=== PATIENT | female | born 1960 | race Caucasian/White ===

== ENCOUNTER → 2017-05-21 | Day surgery (SDC) | payer OTHER ==
[~2017-05-21] VITALS: Ht 160 cm; Wt 70.5 kg
[~2017-05-21] MED LIST: BUPIVACAINE HCL PF 0.5% 30 ML VIAL ONE; CEPH-460 PO; CHLORHEXIDINE GLUCONATE 2 % 1 PACK (2 CLOTHS) TOPICAL PRN; INSULIN HUMAN REGULAR 1,000 UNITS/10 ML VIAL SQ PRN; LACTATED RINGER'S 1000 ML IV PRN; LIDOCAINE HCL 2% 50 ML VIAL ONE; METOPROLOL TARTRATE 25 MG TAB PO PRN; MIDAZOLAM HCL 2 MG/2 ML VIAL ONE; NEOMYCIN/POLYMYXIN 1 ML G.U. IRRIGANT ONE; NORC5TAB PO; POVIDONE IODINE 5% (ANTISEPSIS KIT) 4 APPLICATIONS EACH NARE PRN; PROPOFOL 200 MG/20 ML AMP IV ONE; SODIUM CHLORID 0.9% 500 ML IV PRN; TRIAMCINOLONE ACETONIDE 40 MG/ML VIAL ONE; ceFAZolin 1,000 MG/NS 100 ML IV SCH
[2017-05-21 06:54] VITALS: BP 148/98; PULSE 64; RESP 16; TEMP 98.1; O2SAT 99
[2017-05-21 07:17] LABS: HEMATOCRIT 41.8 % (35.0-46.0); MEAN CELL VOLUME 85.9 FL (80.0-100.0); MEAN CORPUSCULAR HEMOGLOBIN 28.6 PG (27.0-34.0); MEAN CORPUSCULAR HGB CONC 33.3 % (32.0-36.0); PLATELET COUNT 246 TH/MM3 (150-450); RED BLOOD COUNT 4.87 MIL/MM3 (4.00-5.30); RED CELL DISTRIBUTION WIDTH 13.6 % (11.6-17.2); REVIEW FLAG FINAL
[2017-05-21 08:54] VITALS: TEMP 97.8
[2017-05-21 09:04] VITALS: BP 123/87; PULSE 73; RESP 18; O2SAT 99
--- NOTE | 2017-05-21 12:57 | MP ---
cc: FELIX THAO III, M.D. DATE OF SURGERY 05/21/2017 PREOPERATIVE DIAGNOSIS 1. Right carpal tunnel syndrome. 2. Right ring finger/hand mass. PROCEDURE 1. Right ring finger/hand mass excisional biopsy. 2. Right carpal tunnel steroid injection SURGEON Felix Thao III, MD PROCEDURE The patient was brought to the operating room, placed supine on the operating table. After the correct site and side of surgery were verified by members of each team in the room multiple times including the patient and myself and after adequate preoperative markings were verified and after adequate operative consent was verified and after adequate time-out was performed to everyone' satisfaction, the right upper extremity was prepped and draped in the traditional sterile surgical fashion. A 50/50 mixture of 2% plain lidocaine 0.5% plain Marcaine was infiltrated in the skin and subcutaneous tissue proximal to the mass at the base of the right ring finger. A 2:1 mixture of 2% plain lidocaine and Kenalog 40 mg/mL now injected into the carpal tunnel. The limb was then exsanguinated with a gentle Andrew wrap and a highly placed well-padded axillary tourniquet was inflated to 220 mmHg for a total 15 minutes. A transverse oriented incision within the flexion skin crease at the base of the ring finger was made and carried down through the skin and subcutaneous tissue. Blunt dissection was performed. A large fluid-filled mass attached to the flexor tendon sheath was identified and dissected free and passed off the field as a specimen. The base of it was incised and cauterized just beneath a little opening in the flexor sheath and the examined tendons were intact and non compromised. Any ratty attenuated tissue was debrided sharply. There were no other anatomic abnormalities. Tenodesis was normal. A thorough irrigation with a liters worth of saline was performed and then the skin edges reapproximated using running 5-0 nylon suture. The hand and arm were thoroughly cleansed and dried. Betadine Adaptic dressings were applied on top of the wound followed by a bulky soft dressing. Circumferential soft roll was used in the usual fashion. The axillary tourniquet was released. The hand and all the fingers became immediately soft, pink, and warm and had brisk capillary refill less than two seconds. No evidence of hematoma or bleeding was present. The patient awakened from anesthesia and transported to the Post Anesthesia Care Unit awake and in stable condition at the end of the case. The sponge, needle and instrument counts were correct at the end of the case as reported by nurses in the room. MD AUDIE Morales III/MEHDI /9:15 AM /12:46 PM
--- NOTE | 2017-05-21 16:46 | EKG ---
Date Performed: 05/21/2017 Time Performed: 07:23:25 PTAGE: 56 years EKG: Sinus rhythm NORMAL ECG NO PREVIOUS TRACING DOCTOR: Eagle Loera Interpretating Date/Time 05/21/2017 16:44:08
== END | disposition home or self-care (01) ==
LOC: PHSDC 06:26
PROVIDERS: ATTEND Orthopaedic Surgery Hand Surgery
DX: M67.441 Ganglion, right hand (principal); G56.01 Carpal tunnel syndrome, right upper limb; Z01.810 Encounter for preprocedural cardiovascular examination
CPT/HCPCS: 01810; 20526; 26160; 36415; 85027; 88304; 93005; J0690; J2250; J3010; J3301; J7120; 88305